=== PATIENT | female | born 1950 | race Caucasian/White ===

== ENCOUNTER 2017-01-26 09:21 | Emergency (ER) | payer OTHER ==
[~2017-01-26] VITALS: Ht 162.6 cm; Wt 53.3 kg
[~2017-01-26 09:21] MED LIST: DIGO125T10
[2017-01-26] MEDS ORDERED: SODIUM CHLORIDE 0.9% 1,000 ML IV ONE (11:10)
[2017-01-26] MEDS ORDERED: HYDROmorphone 1 MG/ML, 1ML ONE ×2 (11:19→16:56)
[2017-01-26] MEDS ORDERED: ONDANSETRON 2MG/ML, 2ML ONE ×2 (11:20→16:56)
[2017-01-26] MEDS: HYDROmorphone 1 MG/ML, 1ML IVPush PRN ×2 (11:26→17:02)
[2017-01-26] MEDS ORDERED: ONDANSETRON 2MG/ML, 2ML IVPush ONE ×2 (11:30→17:00)
[2017-01-26] MEDS ORDERED: SODIUM CHLORIDE 0.9% 1,000ML IVBOLUS ONE (11:30)
[2017-01-26] MEDS ORDERED: SODIUM CHLORIDE FLUSH 10ML SYR IVF ONE (11:30)
[2017-01-26 11:45] LABS: RAPID INFLUENZA A Negative (Negative); RAPID INFLUENZA B Negative (Negative)
[2017-01-26 12:13] LABS: BLOOD UREA NITROGEN 8 mg/dL (7-18)
[2017-01-26 12:16] LABS: ASPARTATE AMINO TRANSFERASE 20 U/L (15-37)
[2017-01-26 16:10] LABS: GLUCOSE, CSF 58 mg/dL (40-80)
[2017-01-26 16:45] VITALS: BP 126/80
== END 2017-01-26 17:57 | disposition home or self-care (01) ==
LOC: ED 14:00
DX: B34.9 Viral infection, unspecified (principal); Z88.5 Allergy status to narcotic agent
CPT/HCPCS: 36415; 62270; 71020; 80053; 81003; 82945; 83605; 84157; 85025; 87040; 87070; 87205; 87252; 87400; 89051; 96361; 96374; 96375; 96376; 99285; J1170; J2405; J7030

== ENCOUNTER → 2017-04-15 | Outpatient (CLI) | payer OTHER | END | disposition home or self-care (01) | LOC: CFH 08:48 | PROVIDERS: ATTEND Family Medicine | DX: Z12.2 Encounter for screening for malignant neoplasm of respiratory organs (principal); I25.10 Atherosclerotic heart disease of native coronary artery without angina pectoris; F17.210 Nicotine dependence, cigarettes, uncomplicated | CPT/HCPCS: G0297 ==

== ENCOUNTER 2018-07-30 09:02 | Outpatient (CLI) | payer MEDICARE | END 2018-07-30 23:59 | disposition home or self-care (01) | LOC: CFH 09:02 | PROVIDERS: ATTEND Nurse Practitioner Primary Care | DX: Z12.2 Encounter for screening for malignant neoplasm of respiratory organs (principal); I25.10 Atherosclerotic heart disease of native coronary artery without angina pectoris; Z87.891 Personal history of nicotine dependence | CPT/HCPCS: G0297 ==

== ENCOUNTER → 2019-09-13 | Outpatient (CLI) | payer MEDICARE | END | disposition home or self-care (01) | LOC: CFH 09:10 | PROVIDERS: ATTEND Nurse Practitioner Primary Care | DX: Z12.2 Encounter for screening for malignant neoplasm of respiratory organs (principal); J98.4 Other disorders of lung; I10 Essential (primary) hypertension; R55 Syncope and collapse; Z87.891 Personal history of nicotine dependence | CPT/HCPCS: G0297 ==

== ENCOUNTER → 2020-11-22 | Outpatient (CLI) | payer MEDICARE ==
[~2020-11-22] MED LIST changes: +ACYCLOVIR; +ESTROGEN; +PRILOSEC; +PROGESTRONE
== END | disposition home or self-care (01) ==
LOC: CFH 08:44
PROVIDERS: ATTEND Physician Assistant
DX: Z12.2 Encounter for screening for malignant neoplasm of respiratory organs (principal); F17.210 Nicotine dependence, cigarettes, uncomplicated; J98.4 Other disorders of lung
CPT/HCPCS: 71271